=== PATIENT | female | born 1965 | race Hispanic/Latino ===

== ENCOUNTER 2019-01-13 17:22 | Emergency (ER) | payer OTHER ==
[~2019-01-13] VITALS: Ht 167.6 cm; Wt 99.8 kg
[2019-01-13 18:04] LABS: BASOPHILS # (AUTO) 0.1 (0.0-0.1); BASOPHILS % 0.9 % (0.0-1.0); EOSINOPHILS # (AUTO) 0.2 (0.0-0.4); EOSINOPHILS % 2.4 % (0.0-6.0); HEMATOCRIT 41.9 % (34.2-44.1); HEMOGLOBIN 14.8 g/dL (12.0-16.0); LYMPHOCYTES # (AUTO) 2.3 (1.0-3.2); LYMPHOCYTES % 34.1 % (18.0-39.1); MEAN CORPUSCULAR HEMOGLOBIN 31.6 pg (28-32); MEAN CORPUSCULAR HGB CONC 35.3 g/dL (31-35); MEAN CORPUSCULAR VOLUME 89.5 fL (81-99); MONOCYTES # (AUTO) 0.6 (0.2-0.8); MONOCYTES % 8.3 % (4.4-11.3); NEUTROPHILS # (AUTO) 3.5 (2.1-6.9); NEUTROPHILS % 53.4 % (38.7-80.0); PLATELET COUNT 175 x10e3/uL (140-360); RED BLOOD COUNT 4.68 x10e6/uL (3.6-5.1); RED CELL DISTRIBUTION WIDTH 13.2 % (11.7-14.4)
[2019-01-13 18:08] LABS: BILIRUBIN,URINE NEGATIVE (NEGATIVE); CLARITY,URINE CLEAR (CLEAR); COLOR,URINE YELLOW (YELLOW); KETONES,URINE NEGATIVE (NEGATIVE); LEUKOCYTE ESTERASE ,URINE NEGATIVE (NEGATIVE); NITRITE,URINE NEGATIVE (NEGATIVE); PROTEIN,URINE DIPSTICK NEGATIVE (NEGATIVE); URINE UROBILINOGEN 0.2 mg/dL (0.2 - 1)
[2019-01-13 18:21] LABS: BACTERIA,URINE MODERATE /HPF; EPITHELIAL CELLS,URINE MANY /LPF
[2019-01-13 18:23] LABS: ALBUMIN 4.2 g/dL (3.5-5.0); ALBUMIN/GLOBULIN RATIO 1.2 (0.8-2.0); ANION GAP 16.3 mmol/L (8-16); CALCIUM 9.8 mg/dL (8.4-10.2); CREATININE, SERUM 0.99 mg/dL (0.57-1.11); POTASSIUM 4.3 mmol/L (3.5-5.1)
[2019-01-13] MEDS: ONDANSETRON HCL INJ 2MG/ML 2ML 2 MG/ML VIAL IV NR (18:24)
--- NOTE | 2019-01-13 18:24 | Diagnostic Imaging Report ---
EXAM: CT of the abdomen and pelvis WITHOUT contrast HISTORY: Intermittent left flank pain, left-sided pain, history of hysterectomy COMPARISON: None available. TECHNIQUE: The abdomen and pelvis were scanned utilizing a multidetector helical scanner. Coronal and sagittal reformats are available. PROTOCOL: Renal colic IV CONTRAST: None, which limits sensitivity and specificity of evaluation of the soft tissues and vascular structures. ORAL CONTRAST: None, which limits sensitivity and specificity of evaluation of the bowel. RADIATION DOSE: Total DLP: 783.64 mGy*cm Estimated effective dose: (DLP x 0.015 x size factor) Dose modulation, iterative reconstruction, and/or weight based adjustment of the mA/kV was utilized to reduce the radiation dose to as low as reasonably achievable. COMPLICATIONS: None FINDINGS: LOWER THORAX: Unremarkable. HEPATOBILIARY: No definite focal hepatic lesions. No biliary ductal dilatation. The gallbladder is unremarkable. SPLEEN: Splenomegaly, 14.3 cm. PANCREAS: No focal masses or ductal dilatation. ADRENALS: No adrenal nodule. KIDNEYS/URETERS: No hydronephrosis, stones, or solid mass lesion identified. PELVIC ORGANS/BLADDER: The urinary bladder is partially decompressed. Mild adjacent fat stranding. PERITONEUM / RETROPERITONEUM: No free air or fluid. GI TRACT: On limited evaluation of the gastrointestinal tract, no dilation or wall thickening identified. The appendix is normal. LYMPH NODES: No pathologically enlarged lymph nodes. VESSELS: Appear unremarkable. BONES and JOINTS: No aggressive osseous lesion or acute fracture. SOFT TISSUES: A very small fat-containing umbilical hernia, without associated inflammatory changes. IMPRESSION: 1. Mild nonspecific fat stranding about the urinary bladder, correlate for cystitis. 2. Splenomegaly. 3. No calcified urinary tract stone or hydronephrosis. Signed by: Dr. Vince Pacheco D.O., M.M.M. on 01/13/2019 6:21 PM
[2019-01-13] MEDS: KETOROLAC TROMETHAMINE 30 MG/ML VIAL IV STA (18:25)
--- NOTE | 2019-01-13 18:25 | Diagnostic Imaging Report ---
A single frontal view of the chest. HISTORY: Left-sided pain COMPARISON: None available. DISCUSSION: Portable technique, limits sensitivity of the exam. Soft tissue attenuation partially limits sensitivity of the exam. Tubes/Lines: None Lungs and pleura: The lungs are well inflated. No evidence of a consolidative pneumonia or pulmonary alveolar edema. No definite pleural effusion or pneumothorax is identified. Heart and mediastinum: The cardiomediastinal silhouette appears unremarkable. Bones and soft tissues: Appear unremarkable, given this limited exam. IMPRESSION: No acute radiographic abnormality. Signed by: Dr. Vince Pacheco D.O., M.M.M. on 01/13/2019 6:22 PM
[2019-01-13] MEDS: SODIUM CHLORIDE 0.9% 1000ML 1,000 ML IV STA (18:26)
[2019-01-13] MEDS ORDERED: CEFTRIAXONE SOD 1 GM VIAL IV ONE (19:00)
[2019-01-13] MEDS: LEVOFLOXACIN 500 MG TAB PO NR (19:24)
[2019-01-13] MEDS: PHENAZOPYRIDINE HCL 100 MG TAB PO SCH (19:24)
[2019-01-13] MEDS: CEFTRIAXONE SOD 1 GM/NS 50 ML 50 ML IV ONE (19:26)
[2019-01-13 21:09] VITALS: BP 123/67
== END 2019-01-13 21:11 | disposition home or self-care (01) ==
LOC: ER 17:22
DX: N30.00 Acute cystitis without hematuria (principal)
CPT/HCPCS: 36415; 71045; 74176; 80053; 81001; 83690; 85025; 87086; 96374; 96375; 99284; J0696; J1885; J2405; J7030